=== PATIENT | female | born 1990 | race African-American/Black ===

== ENCOUNTER 2019-11-21 19:11 | Emergency (ER) | payer OTHER ==
[~2019-11-21] VITALS: Ht 154.9 cm; Wt 72.6 kg
[2019-11-21 19:11] VITALS: BP 132/67
--- NOTE | 2019-11-21 19:11 | NUR ---
ED Nurse Note: BROUGHT IN BY ROMAN RA [address] W/ BEHAVIORAL COMPLAINT. PT STATES HEARING VOICES BUT DENIES SI, HARM TO SELF OR OTHERS. PT IS CALM AND RESTING, ON MONITOR, ERMD AT BEDSIDE. VSS, NAD, AAOX4, AMBULATORY.
[2019-11-21] MEDS ORDERED: LORazepam Inj 2mg/ml 1ml IV ONE (19:15)
[2019-11-21] MEDS ORDERED: Haloperidol 5mg/ml Inj IM ONE (19:15)
[2019-11-21] MEDS ORDERED: DiphenhydrAMINE 50mg/ml Inj IM ONE (19:15)
--- NOTE | 2019-11-21 19:15 | NUR ---
ED Nurse Note: PT ELOPED, SECURITY WAS CALLED BUT PATIENT HAD ALREADY LEFT PREMISE OF HOSPITAL. PT DID NOT HAVE ANY MEDICAL DEVICES NOR MEDICATED. PT VS WAS STABLE UPON ELOPEMENT. CN AWARE, ERMD AWARE. INCIDENT REPORT FILED.
[2019-11-21 19:19] VITALS: BP 132/67
--- NOTE | 2019-11-21 19:19 | NUR ---
ELOPEMENT: SEE PREVIOUS NOTE.
--- NOTE | 2019-11-21 19:20 | Emergency Room Report ---
History of Present Illness General Chief Complaint: Behavioral Complaint Source: Patient, EMS Present Illness HPI Patient is a 29-year-old female past medical history of schizophrenia who presents to the ER complaining of hearing voices. She states that she hears demons and angels. She denies any suicidal or homicidal ideation. She states that she is compliant with her medication. She states that she uses cocaine as well as marijuana. She denies any fever or chills. She denies any chest pain or shortness of breath. She denies any abdominal pain nausea or vomiting. Patient was brought in by EMS. Allergies: Coded Allergies: No Known Allergies (Unverified , 11/21/19) COVID-19 Screening Contact w/high risk pt: No Experienced COVID-19 symptoms?: No COVID-19 Testing performed [employer]: No Patient History Last Menstrual Period: unk Reviewed Nursing Documentation: PMH: Agreed; PSxH: Agreed Review of Systems All Other Systems: negative except mentioned in HPI Physical Exam Vital Signs Date Time Temp Pulse Resp B/P (MAP) Pulse Ox O2 Delivery O2 Flow Rate FiO2 11/21/19 19:07 99.0 89 19 135/78 (97) 99 Room Air Sp02 EP Interpretation: reviewed, normal General Appearance: no apparent distress, alert, GCS 15, non-toxic Head: normocephalic, atraumatic Eyes: bilateral eye normal inspection, bilateral eye PERRL ENT: hearing grossly normal, normal pharynx, no angioedema, normal voice Neck: full range of motion, supple/symm/no masses Respiratory: chest non-tender, lungs clear, normal breath sounds, speaking full sentences Cardiovascular #1: regular rate, rhythm, no edema Gastrointestinal: normal bowel sounds, non tender, soft, non-distended, no guarding, no rebound Rectal: deferred Genitourinary: no CVA tenderness Musculoskeletal: normal range of motion, no calf tenderness Neurologic: human resources partner III-XII nml as tested, oriented x3 Psychiatric: no suicidal/homicidal ideation, other - Agitated and anxious Skin: no rash Lymphatic: no adenopathy Medical Decision Making Diagnostic Impression: Primary Impression: Behavioral disorder ER Course Prior to initiation of ER work-up patient walked out of the emergency room. Last Vital Signs Date Time Temp Pulse Resp B/P (MAP) Pulse Ox O2 Delivery O2 Flow Rate FiO2 11/21/19 19:07 99.0 89 19 135/78 (97) 99 Room Air Disposition: ELOPED Condition: Unknown Additional Instructions: Please note that this report is being documented using [employer] technology. This can lead to erroneous entry secondary to incorrect interpretation by the dictating instrument. Amanda Bee M.D. Nov 21, 2019 19:20
--- NOTE | 2019-11-21 19:51 | NUR ---
Kaylyn reynolds in [facility] - 11/21/19 at 1952 by [id number] HIGINIOMENT: SEE PREVIOUS NOTE
== END 2019-11-21 19:19 | disposition left against medical advice (07) ==
LOC: EDBD 19:11 → EMR 19:17
DX: F91.9 Conduct disorder, unspecified (principal); F20.9 Schizophrenia, unspecified; R45.1 Restlessness and agitation
CPT/HCPCS: 99281